=== PATIENT | male | born 1965 | race Caucasian/White ===

== ENCOUNTER 2023-10-29 14:10 | Inpatient (IN) | payer MEDICAID ==
[~2023-10-29] VITALS: Ht 165.1 cm; Wt 91.8 kg
[~2023-10-29 14:10] MED LIST: LISI-894 PO; OLAN10 PO
[2023-10-29] MEDS: HALOPERIDOL 5 MG TABLET PO ONE (15:27)
[2023-10-29] MEDS: BENZTROPINE MESYLATE 2 MG TABLET PO ONE (15:27)
[2023-10-29] MEDS: LORazepam 1 MG TABLET PO ONE (15:27)
[2023-10-29] MEDS: AmLODIPine BESYLATE 10 MG TABLET PO ONE (15:27)
[2023-10-29 15:32] LABS: BASOPHILS % (AUTO) 0.2 % (0.0-2.0); EOSINOPHILS % (AUTO) 0.2 % (1.0-6.0); HEMATOCRIT 47.6 % (41-53); HEMOGLOBIN 16.6 g/dL (13.5-17.5); LYMPHOCYTES # (AUTO) 1.1 K/uL (1.0-4.8); LYMPHOCYTES % (AUTO) 10.4 % (22.0-44.0); MEAN CORPUSCULAR HEMOGLOBIN 31.7 pg (26.0-34.0); MEAN CORPUSCULAR VOLUME 91 fL (80-100); MONOCYTES # (AUTO) 0.8 K/uL (0.1-1.0); MONOCYTES % (AUTO) 7.7 % (2.0-9.0); NEUTROPHILS # (AUTO) 8.2 K/uL (1.8-7.7); NEUTROPHILS % (AUTO) 81.5 % (40.0-70.0); PLATELET COUNT (AUTO) 192 K/uL (150-450); RED BLOOD CELL COUNT(AUTO) 5.24 MIL/uL (4.50-5.90); RED CELL DISTRIBUTION WIDTH 14.3 % (11.5-14.5); WHITE BLOOD COUNT (AUTO) 10.1 K/uL (4.5-11.0)
[2023-10-29 15:45] LABS: ANION GAP 14 mmol/L (8-16); CALCIUM, TOTAL 9.3 mg/dL (8.8-10.5); CARBON DIOXIDE 23 mmol/L (22-29); CHLORIDE 98 mmol/L (98-107); CREATININE 1.01 mg/dL (0.60-1.30); GLOMERULAR FILTR. RATE CALC > 60 mL/min (>60); GLUCOSE,RANDOM 133 mg/dL (70-110); POTASSIUM 4.2 mmol/L (3.5-5.1); SODIUM SERUM 135 mmol/L (136-145); UREA NITROGEN, BLOOD 13 mg/dL (7-18)
[2023-10-29 15:50] LABS: ALANINE AMINOTRANSFERASE 34 U/L (12-78); ALBUMIN 4.4 g/dL (3.4-5.0); ALKALINE PHOSPHATASE 83 U/L (46-116); ASPARTATE AMINOTRANSFERASE 22 U/L (15-37); BILIRUBIN,TOTAL 1.2 mg/dL (0.1-1.0); TOTAL PROTEIN, SERUM 9.1 g/dL (6.4-8.2)
[2023-10-29 16:02] LABS: ALCOHOL, BLOOD (SERUM) < 3 mg/dL (0-10)
[2023-10-29 17:21] LABS: COVID AG,FIA SOURCE NASAL SWAB
[2023-10-29 17:40] LABS: SARS-COV2 (COVID) ANTIGEN,FIA Negative (Negative)
[2023-10-29] MEDS ORDERED: PNEUMOCOCCAL VACCINE POLYVALENT 0.5 ML SYRINGE [PPSV23] IM. ONE (20:30)
[2023-10-29] MEDS ORDERED: INFLUENZA VIRUS VACCINE QVS 2023-24 (6MO+)/PF 60 MCG/0.5 ML SYRINGE IM. ONE (20:30)
[2023-10-29 21:25] LABS: GLUCOMETER DEV NAME(LOC) BV3N.; GLUCOSE,POINT OF CARE 154 MG/DL (70-110)
[2023-10-29 22:11] VITALS: BP 153/99; PULSE 101; RESP 19; TEMP 98.5; O2SAT 98
[2023-10-30 00:19] VITALS: BP 106/86; PULSE 94; RESP 19; TEMP 98.2; O2SAT 99
[2023-10-30] MEDS ORDERED: CloNIDine HCL 0.1 MG TABLET PO PRN (06:30)
[2023-10-30] MEDS ORDERED: MAG HYDROX/ALUMINUM HYD/SIMETH ES 30 ML SUSPENSION UDCUP PO PRN (06:30)
[2023-10-30] MEDS ORDERED: IBUPROFEN 400 MG TABLET PO PRN (06:30)
[2023-10-30] MEDS ORDERED: PETROLATUM,WHITE 28 GM JELLY TP PRN (06:30)
[2023-10-30] MEDS ORDERED: GuaiFENesin/D-METHORPHAN [SUGAR-FREE] 200-20MG/10 ML SYRUP UDCUP PO PRN (06:30)
[2023-10-30] MEDS ORDERED: ACETAMINOPHEN 325 MG TABLET PO PRN (06:30)
[2023-10-30] MEDS ORDERED: ALBUTEROL SULFATE HFA 90 MCG/PUFF 8 GM INHALER IH PRN (06:30)
[2023-10-30] MEDS ORDERED: LOPERAMIDE HCL 2 MG CAPSULE PO PRN (06:30)
[2023-10-30] MEDS ORDERED: NICOTINE 14 MG/24 HOUR PATCH TD PRN (06:30)
[2023-10-30] MEDS ORDERED: MAGNESIUM HYDROXIDE SUSPENSION 30 ML UDCUP PO PRN (06:30)
[2023-10-30] MEDS ORDERED: ONDANSETRON HCL 4 MG TABLET PO PRN (06:30)
[2023-10-30] MEDS ORDERED: GLUCAGON,HUMAN RECOMBINANT 1 MG VIAL IM PRN (07:15)
[2023-10-30] MEDS: AmLODIPine BESYLATE 10 MG TABLET PO SCH (08:12)
[2023-10-30 08:40] VITALS: BP 139/85; PULSE 104; RESP 18; TEMP 97.7; O2SAT 95
[2023-10-30 08:43] LABS: HEMOGLOBIN A1C 5.7 % (3.8-5.6)
[2023-10-30 08:55] LABS: FREE T4 (FREE THYROXINE) 1.37 ng/dL (0.76-1.46); T4 (THYROXINE) 10.4 mcg/dL (4.7-13.3); THYROID STIMULATING HORMONE 1.45 uIU/mL (0.36-3.74)
[2023-10-30 09:07] LABS: APPEARANCE,URINE HAZY (CLEAR); BILIRUBIN,URINE NEGATIVE (NEGATIVE); COLOR,URINE LIGHT YELLOW (YELLOW); GLUCOSE, URINE (UA) NEGATIVE (NEGATIVE); KETONES,URINE NEGATIVE (NEGATIVE); LEUKOCYTE ESTERASE ,URINE LARGE (NEGATIVE); NITRATE,URINE POSITIVE (NEGATIVE); OCCULT BLOOD,URINE NEGATIVE (NEGATIVE); PROTEIN,URINE NEGATIVE (NEGATIVE); SPECIFIC GRAVITIY, URINE 1.011 (1.003-1.030); UROBILINOGEN,URINE <=1.0 mg/dL (<=1.0)
[2023-10-30 09:11] LABS: BACTERIA,URINE Many /HPF (None Seen); RBC,URINE 0-2 /HPF (0-2); WBC,URINE 51-100 /HPF (0-5)
[2023-10-30 09:13] LABS: ALCOHOL, URINE DRUG SCREEN NEGATIVE (NEGATIVE); AMPHET/METH SCREEN,URINE POSITIVE (NEGATIVE); BARBITURATE SCREEN, URINE NEGATIVE (NEGATIVE); BENZODIAZEPINES SCREEN,URINE NEGATIVE (NEGATIVE); CANNABINOID SCREEN,URINE NEGATIVE (NEGATIVE); COCAINE SCREEN,URINE NEGATIVE (NEGATIVE); METHADONE SCREEN, URINE NEGATIVE (NEGATIVE); OPIATE SCREEN,URINE NEGATIVE (NEGATIVE); PHENCYCLIDINE SCREEN,URINE NEGATIVE (NEGATIVE)
[2023-10-30 11:14] VITALS: BP 139/95; PULSE 99; RESP 18; TEMP 97.7; O2SAT 96
[2023-10-30 11:51] LABS: GLUCOMETER DEV NAME(LOC) BV3N.; GLUCOSE,POINT OF CARE 197 MG/DL (70-110)
[2023-10-30] MEDS: INSULIN LISPRO 100 UNITS/ML SQ PRN (11:55)
[2023-10-30] MEDS: LORazepam 2 MG TABLET PO PRN (16:21)
[2023-10-30 16:51] LABS: GLUCOMETER DEV NAME(LOC) BV3N.; GLUCOSE,POINT OF CARE 86 MG/DL (70-110)
[2023-10-30] MEDS: OLANZapine 5 MG RAPDIS TABLET PO SCH (17:11)
[2023-10-30 20:11] LABS: GLUCOMETER DEV NAME(LOC) BV3N.; GLUCOSE,POINT OF CARE 146 MG/DL (70-110)
[2023-10-30] MEDS: ZOLPIDEM TARTRATE 10 MG TABLET PO PRN (20:36)
[2023-10-30 21:08] VITALS: BP 111/69; PULSE 92; RESP 16; TEMP 97.3; O2SAT 99
[2023-10-31 07:06] LABS: GLUCOMETER DEV NAME(LOC) BV3N.; GLUCOSE,POINT OF CARE 117 MG/DL (70-110)
[2023-10-31 08:53] LABS: HEMOGLOBIN A1C 5.7 % (3.8-5.6)
[2023-10-31 09:04] LABS: CHOL/HDL RATIO 2.2 (4.2-7.3); THYROID STIMULATING HORMONE 1.66 uIU/mL (0.36-3.74)
[2023-10-31 09:54] VITALS: BP 112/68; PULSE 98; RESP 20; TEMP 98.3; O2SAT 98
[2023-10-31] MEDS: CEPHALEXIN MONOHYDRATE 500 MG CAPSULE PO SCH (13:24)
[2023-10-31 15:21] LABS: GLUCOMETER DEV NAME(LOC) BV3N.; GLUCOSE,POINT OF CARE 84 MG/DL (70-110)
[2023-10-31 16:51] LABS: GLUCOMETER DEV NAME(LOC) BV3N.; GLUCOSE,POINT OF CARE 177 MG/DL (70-110)
[2023-10-31 20:49] VITALS: BP 107/77; PULSE 86; RESP 16; TEMP 97.8; O2SAT 99
[2023-10-31 22:11] LABS: GLUCOMETER DEV NAME(LOC) BV3N.; GLUCOSE,POINT OF CARE 108 MG/DL (70-110)
[2023-11-01 07:40] LABS: GLUCOMETER DEV NAME(LOC) BV3N.; GLUCOSE,POINT OF CARE 111 MG/DL (70-110)
[2023-11-01 08:25] VITALS: BP 148/78; PULSE 82; RESP 18; TEMP 98.3; O2SAT 100
[2023-11-01] MEDS: HALOPERIDOL 5 MG TABLET PO PRN (11:54)
[2023-11-01 17:30] LABS: GLUCOMETER DEV NAME(LOC) BV3N.; GLUCOSE,POINT OF CARE 145 MG/DL (70-110)
[2023-11-01 20:19] VITALS: BP 113/74; PULSE 86; RESP 20; TEMP 97.4; O2SAT 96
[2023-11-01 20:50] LABS: GLUCOMETER DEV NAME(LOC) BV3N.; GLUCOSE,POINT OF CARE 168 MG/DL (70-110)
[2023-11-02 06:21] LABS: GLUCOMETER DEV NAME(LOC) BV3N.; GLUCOSE,POINT OF CARE 111 MG/DL (70-110)
[2023-11-02 11:04] VITALS: BP 126/81; PULSE 86; RESP 18; TEMP 97.6; O2SAT 100
[2023-11-02 20:16] LABS: GLUCOMETER DEV NAME(LOC) BV3N.; GLUCOSE,POINT OF CARE 96 MG/DL (70-110)
[2023-11-02 20:16] LABS: GLUCOMETER DEV NAME(LOC) BV3N.; GLUCOSE,POINT OF CARE 161 MG/DL (70-110)
[2023-11-02 20:16] LABS: GLUCOMETER DEV NAME(LOC) BV3N.; GLUCOSE,POINT OF CARE 157 MG/DL (70-110)
[2023-11-02 21:49] VITALS: BP 136/95; PULSE 86; RESP 18; TEMP 98.1; O2SAT 98
[2023-11-03 06:16] LABS: GLUCOMETER DEV NAME(LOC) BV3N.; GLUCOSE,POINT OF CARE 94 MG/DL (70-110)
[2023-11-03 09:23] VITALS: BP 137/79; PULSE 87; RESP 18; TEMP 97.6; O2SAT 100
[2023-11-03 12:01] LABS: GLUCOMETER DEV NAME(LOC) BV3N.; GLUCOSE,POINT OF CARE 130 MG/DL (70-110)
[2023-11-03 16:55] LABS: GLUCOMETER DEV NAME(LOC) BV3N.; GLUCOSE,POINT OF CARE 124 MG/DL (70-110)
[2023-11-03] MEDS: OLANZapine 7.5 MG TABLET PO SCH (20:19)
[2023-11-03 21:05] VITALS: BP 119/81; PULSE 80; TEMP 97.5; O2SAT 97
[2023-11-03 22:50] LABS: GLUCOMETER DEV NAME(LOC) BV3N.; GLUCOSE,POINT OF CARE 111 MG/DL (70-110)
[2023-11-04 06:21] LABS: GLUCOMETER DEV NAME(LOC) BV3N.; GLUCOSE,POINT OF CARE 98 MG/DL (70-110)
[2023-11-04 08:45] VITALS: BP 114/69; PULSE 60; RESP 17; TEMP 97.6; O2SAT 98
[2023-11-04 11:55] LABS: GLUCOMETER DEV NAME(LOC) BV3N.; GLUCOSE,POINT OF CARE 124 MG/DL (70-110)
[2023-11-04 17:20] LABS: GLUCOMETER DEV NAME(LOC) BV3N.; GLUCOSE,POINT OF CARE 160 MG/DL (70-110)
[2023-11-04 20:15] VITALS: BP 149/82; PULSE 75; TEMP 97.6; O2SAT 98
[2023-11-04 23:16] LABS: GLUCOMETER DEV NAME(LOC) BV3N.; GLUCOSE,POINT OF CARE 141 MG/DL (70-110)
[2023-11-05 06:26] LABS: GLUCOMETER DEV NAME(LOC) BV3N.; GLUCOSE,POINT OF CARE 107 MG/DL (70-110)
[2023-11-05 08:30] VITALS: BP 118/67; PULSE 65; RESP 16; TEMP 98.3; O2SAT 99
[2023-11-05 11:45] LABS: GLUCOMETER DEV NAME(LOC) BV3N.; GLUCOSE,POINT OF CARE 123 MG/DL (70-110)
[2023-11-05 17:10] LABS: GLUCOMETER DEV NAME(LOC) BV3N.; GLUCOSE,POINT OF CARE 128 MG/DL (70-110)
[2023-11-05 20:17] VITALS: BP 122/72; PULSE 71; TEMP 97.5; O2SAT 100
[2023-11-05 20:31] LABS: GLUCOMETER DEV NAME(LOC) BV3N.; GLUCOSE,POINT OF CARE 131 MG/DL (70-110)
[2023-11-06 06:05] LABS: GLUCOMETER DEV NAME(LOC) BV3N.; GLUCOSE,POINT OF CARE 98 MG/DL (70-110)
[2023-11-06 08:18] VITALS: BP 138/74; PULSE 70; RESP 18; TEMP 97.9; O2SAT 100
[2023-11-06 11:25] LABS: GLUCOMETER DEV NAME(LOC) BV3N.; GLUCOSE,POINT OF CARE 200 MG/DL (70-110)
[2023-11-06 16:41] LABS: GLUCOMETER DEV NAME(LOC) BV3N.; GLUCOSE,POINT OF CARE 89 MG/DL (70-110)
[2023-11-06 20:20] VITALS: BP 109/87; PULSE 67; TEMP 97.2; O2SAT 99
[2023-11-06 20:26] LABS: GLUCOMETER DEV NAME(LOC) BV3N.; GLUCOSE,POINT OF CARE 169 MG/DL (70-110)
[2023-11-07 06:16] LABS: GLUCOMETER DEV NAME(LOC) BV3N.; GLUCOSE,POINT OF CARE 99 MG/DL (70-110)
[2023-11-07 09:03] VITALS: BP 118/76; PULSE 72; RESP 18; TEMP 97.7; O2SAT 100
[2023-11-07 11:55] LABS: GLUCOMETER DEV NAME(LOC) BV3N.; GLUCOSE,POINT OF CARE 94 MG/DL (70-110)
[2023-11-07 16:35] LABS: GLUCOMETER DEV NAME(LOC) BV3N.; GLUCOSE,POINT OF CARE 214 MG/DL (70-110)
[2023-11-07 20:01] LABS: GLUCOMETER DEV NAME(LOC) BV3N.; GLUCOSE,POINT OF CARE 122 MG/DL (70-110)
[2023-11-07 22:07] VITALS: BP 113/75; PULSE 89; RESP 18; TEMP 97.8; O2SAT 99
[2023-11-08 06:36] LABS: GLUCOMETER DEV NAME(LOC) BV3N.; GLUCOSE,POINT OF CARE 101 MG/DL (70-110)
[2023-11-08 08:24] VITALS: BP 118/62; PULSE 61; RESP 17; TEMP 97.5; O2SAT 100
[2023-11-08 16:36] LABS: GLUCOMETER DEV NAME(LOC) BV3N.; GLUCOSE,POINT OF CARE 102 MG/DL (70-110)
[2023-11-08 16:36] LABS: GLUCOMETER DEV NAME(LOC) BV3N.; GLUCOSE,POINT OF CARE 165 MG/DL (70-110)
[2023-11-08 20:16] VITALS: BP 129/80; PULSE 81; RESP 17; TEMP 98
[2023-11-08 20:21] LABS: GLUCOMETER DEV NAME(LOC) BV3N.; GLUCOSE,POINT OF CARE 141 MG/DL (70-110)
[2023-11-09 07:10] LABS: GLUCOMETER DEV NAME(LOC) BV3N.; GLUCOSE,POINT OF CARE 101 MG/DL (70-110)
[2023-11-09 08:05] VITALS: BP 122/60; PULSE 79; RESP 16; TEMP 98.2; O2SAT 100
[2023-11-09 16:40] LABS: GLUCOMETER DEV NAME(LOC) BV3N.; GLUCOSE,POINT OF CARE 169 MG/DL (70-110)
[2023-11-09 16:40] LABS: GLUCOMETER DEV NAME(LOC) BV3N.; GLUCOSE,POINT OF CARE 116 MG/DL (70-110)
[2023-11-09] MEDS: DOCUSATE SODIUM 100 MG CAPSULE PO PRN (17:15)
[2023-11-09 20:35] LABS: GLUCOMETER DEV NAME(LOC) BV3N.; GLUCOSE,POINT OF CARE 146 MG/DL (70-110)
[2023-11-09 21:43] VITALS: BP 130/63; PULSE 71; RESP 15; TEMP 97.8; O2SAT 99
[2023-11-10 06:31] LABS: GLUCOMETER DEV NAME(LOC) BV3N.; GLUCOSE,POINT OF CARE 93 MG/DL (70-110)
[2023-11-10 08:55] VITALS: BP 127/65; PULSE 66; RESP 18; TEMP 97.7; O2SAT 99
[2023-11-10 20:06] LABS: GLUCOMETER DEV NAME(LOC) BV3N.; GLUCOSE,POINT OF CARE 97 MG/DL (70-110)
[2023-11-10 20:06] LABS: GLUCOMETER DEV NAME(LOC) BV3N.; GLUCOSE,POINT OF CARE 137 MG/DL (70-110)
[2023-11-10 20:06] LABS: GLUCOMETER DEV NAME(LOC) BV3N.; GLUCOSE,POINT OF CARE 166 MG/DL (70-110)
[2023-11-10 21:03] VITALS: BP 138/75; PULSE 78; TEMP 98; O2SAT 99
[2023-11-11 06:50] LABS: GLUCOMETER DEV NAME(LOC) BV3N.; GLUCOSE,POINT OF CARE 116 MG/DL (70-110)
[2023-11-11 08:31] VITALS: BP 118/70; PULSE 63; RESP 17; TEMP 98; O2SAT 99
[2023-11-11 11:51] LABS: GLUCOMETER DEV NAME(LOC) BV3N.; GLUCOSE,POINT OF CARE 150 MG/DL (70-110)
[2023-11-11] MEDS ORDERED: OLAN7.5T22 PO (14:27)
[2023-11-11] MEDS ORDERED: AMLO-258 PO (15:35)
[2023-11-11 16:50] LABS: GLUCOMETER DEV NAME(LOC) BV3N.; GLUCOSE,POINT OF CARE 183 MG/DL (70-110)
== END 2023-11-11 19:19 | disposition home or self-care (01) | DRG 750 ==
LOC: EMS 14:10 → B3A 17:17
PROVIDERS: ADMIT Psychiatry & Neurology Child & Adolescent Psychiatry; ATTEND Psychiatry & Neurology Child & Adolescent Psychiatry
PROC: GZHZZZZ Group Psychotherapy (ICD-10-PCS; principal; 2023-11-01)
PROC: GZ51ZZZ Individual Psychotherapy, Behavioral (ICD-10-PCS; 2023-11-01)
DX: F20.0 Paranoid schizophrenia (principal); E11.9 Type 2 diabetes mellitus without complications; R45.851 Suicidal ideations; F15.10 Other stimulant abuse, uncomplicated; Z20.822 Contact with and (suspected) exposure to COVID-19; I10 Essential (primary) hypertension; N39.0 Urinary tract infection, site not specified; Z79.4 Long term (current) use of insulin; Z91.148 Patient's other noncompliance with medication regimen for other reason
CPT/HCPCS: 80053; 80061; 80307; 81001; 82962; 83036; 84436; 84439; 84443; 85025; 87086; 87186; 99285; G0480

== ENCOUNTER 2024-01-05 12:57 | Inpatient (IN) | payer MEDICAID, OTHER ==
[~2024-01-05] VITALS: Ht 167.6 cm; Wt 93.4 kg
[~2024-01-05 12:57] MED LIST changes: +AMLO-258 PO; -LISI-894 PO; -OLAN10 PO; +OLAN7.5T22 PO
[2024-01-05 13:26] LABS: GLUCOMETER DEV NAME(LOC) ERT.5; GLUCOSE,POINT OF CARE 197 MG/DL (70-110)
[2024-01-05 13:51] LABS: COVID AG,FIA SOURCE NASAL SWAB
[2024-01-05 14:04] LABS: ANION GAP 12 mmol/L (8-16); CALCIUM, TOTAL 9.2 mg/dL (8.8-10.5); CARBON DIOXIDE 24 mmol/L (22-29); CHLORIDE 95 mmol/L (98-107); CREATININE 0.99 mg/dL (0.60-1.30); GLOMERULAR FILTR. RATE CALC > 60 mL/min (>60); GLUCOSE,RANDOM 177 mg/dL (70-110); POTASSIUM 3.9 mmol/L (3.5-5.1); SODIUM SERUM 131 mmol/L (136-145); UREA NITROGEN, BLOOD 11 mg/dL (7-18)
[2024-01-05 14:07] LABS: BASOPHILS % (AUTO) 0.3 % (0.0-2.0); EOSINOPHILS % (AUTO) 0.5 % (1.0-6.0); HEMATOCRIT 46.4 % (41-53); HEMOGLOBIN 16.1 g/dL (13.5-17.5); LYMPHOCYTES # (AUTO) 1.3 K/uL (1.0-4.8); LYMPHOCYTES % (AUTO) 14.2 % (22.0-44.0); MEAN CORPUSCULAR HEMOGLOBIN 30.9 pg (26.0-34.0); MEAN CORPUSCULAR HGB CONC 34.7 G/dL (31.0-37.0); MEAN CORPUSCULAR VOLUME 89 fL (80-100); MONOCYTES # (AUTO) 0.8 K/uL (0.1-1.0); MONOCYTES % (AUTO) 9.2 % (2.0-9.0); NEUTROPHILS # (AUTO) 6.9 K/uL (1.8-7.7); NEUTROPHILS % (AUTO) 75.8 % (40.0-70.0); PLATELET COUNT (AUTO) 218 K/uL (150-450); RED BLOOD CELL COUNT(AUTO) 5.21 MIL/uL (4.50-5.90); RED CELL DISTRIBUTION WIDTH 13.6 % (11.5-14.5); WHITE BLOOD COUNT (AUTO) 9.1 K/uL (4.5-11.0)
[2024-01-05 14:09] LABS: ALANINE AMINOTRANSFERASE 47 U/L (12-78); ALBUMIN 4.6 g/dL (3.4-5.0); ALKALINE PHOSPHATASE 95 U/L (46-116); ASPARTATE AMINOTRANSFERASE 30 U/L (15-37); BILIRUBIN,TOTAL 1.1 mg/dL (0.1-1.0); TOTAL PROTEIN, SERUM 9.2 g/dL (6.4-8.2)
[2024-01-05 14:12] LABS: SARS-COV2 (COVID) ANTIGEN,FIA Negative (Negative)
[2024-01-05 14:22] LABS: ALCOHOL, BLOOD (SERUM) < 3 mg/dL (0-10)
[2024-01-05] MEDS: LORazepam 1 MG TABLET PO ONE (14:38)
[2024-01-05] MEDS: OLANZapine 5 MG TABLET PO ONE (14:38)
[2024-01-05] MEDS ORDERED: LORazepam 2 MG TABLET PO PRN (18:00)
[2024-01-06] MEDS: HALOPERIDOL 5 MG TABLET PO PRN (02:37)
[2024-01-06] MEDS: ZOLPIDEM TARTRATE 10 MG TABLET PO PRN (02:37)
[2024-01-06 02:44] VITALS: BP 128/76; PULSE 72; RESP 20; TEMP 98.6; O2SAT 96
[2024-01-06] MEDS ORDERED: GLUCAGON,HUMAN RECOMBINANT 1 MG VIAL IM PRN (03:30)
[2024-01-06] MEDS ORDERED: PNEUMOCOCCAL VACCINE POLYVALENT 0.5 ML SYRINGE [PPSV23] IM. ONE (04:15)
[2024-01-06 06:30] LABS: GLUCOMETER DEV NAME(LOC) BV2S.; GLUCOSE,POINT OF CARE 202 MG/DL (70-110)
[2024-01-06] MEDS: INSULIN LISPRO 100 UNITS/ML SQ PRN (06:43)
[2024-01-06 08:54] VITALS: BP 121/59; PULSE 86; RESP 17; TEMP 96.4; O2SAT 97
[2024-01-06] MEDS: AmLODIPine BESYLATE 10 MG TABLET PO SCH (09:13)
[2024-01-06 09:36] LABS: ALANINE AMINOTRANSFERASE 58 U/L (12-78); ALBUMIN 3.7 g/dL (3.4-5.0); ALKALINE PHOSPHATASE 93 U/L (46-116); ANION GAP 12 mmol/L (8-16); ASPARTATE AMINOTRANSFERASE 43 U/L (15-37); BILIRUBIN,TOTAL 0.7 mg/dL (0.1-1.0); CALCIUM, TOTAL 9.1 mg/dL (8.8-10.5); CARBON DIOXIDE 22 mmol/L (22-29); CHLORIDE 102 mmol/L (98-107); GLOMERULAR FILTR. RATE CALC > 60 mL/min (>60); GLUCOSE,RANDOM 138 mg/dL (70-110); POTASSIUM 3.8 mmol/L (3.5-5.1); SODIUM SERUM 136 mmol/L (136-145); TOTAL PROTEIN, SERUM 7.9 g/dL (6.4-8.2); UREA NITROGEN, BLOOD 18 mg/dL (7-18)
[2024-01-06 11:55] LABS: GLUCOMETER DEV NAME(LOC) BV2S.; GLUCOSE,POINT OF CARE 157 MG/DL (70-110)
[2024-01-06] MEDS ORDERED: ACETAMINOPHEN 325 MG TABLET PO PRN (14:30)
[2024-01-06] MEDS ORDERED: GuaiFENesin/D-METHORPHAN [SUGAR-FREE] 200-20MG/10 ML SYRUP UDCUP PO PRN (14:30)
[2024-01-06] MEDS ORDERED: ALBUTEROL SULFATE HFA 90 MCG/PUFF 8 GM INHALER IH PRN (14:30)
[2024-01-06] MEDS ORDERED: IBUPROFEN 400 MG TABLET PO PRN (14:30)
[2024-01-06] MEDS ORDERED: NICOTINE 14 MG/24 HOUR PATCH TD PRN (14:30)
[2024-01-06] MEDS ORDERED: PETROLATUM,WHITE 28 GM JELLY TP PRN (14:30)
[2024-01-06] MEDS ORDERED: DOCUSATE SODIUM 100 MG CAPSULE PO PRN (14:30)
[2024-01-06] MEDS ORDERED: ONDANSETRON HCL 4 MG TABLET PO PRN (14:30)
[2024-01-06] MEDS ORDERED: LOPERAMIDE HCL 2 MG CAPSULE PO PRN (14:30)
[2024-01-06] MEDS ORDERED: MAG HYDROX/ALUMINUM HYD/SIMETH ES 30 ML SUSPENSION UDCUP PO PRN (14:30)
[2024-01-06] MEDS ORDERED: CloNIDine HCL 0.1 MG TABLET PO PRN (14:30)
[2024-01-06 16:24] LABS: HEMOGLOBIN A1C 6.8 % (3.8-5.6)
[2024-01-06 16:46] LABS: GLUCOMETER DEV NAME(LOC) BV2S.; GLUCOSE,POINT OF CARE 133 MG/DL (70-110)
[2024-01-06] MEDS: MAGNESIUM HYDROXIDE SUSPENSION 30 ML UDCUP PO PRN (20:28)
[2024-01-06] MEDS: OLANZapine 7.5 MG TABLET PO SCH (20:28)
[2024-01-06 20:46] LABS: GLUCOMETER DEV NAME(LOC) BV2S.; GLUCOSE,POINT OF CARE 175 MG/DL (70-110)
[2024-01-06 21:32] VITALS: BP 111/66; PULSE 75; RESP 17; TEMP 97.8; O2SAT 98
[2024-01-07 06:15] LABS: GLUCOMETER DEV NAME(LOC) BV2S.; GLUCOSE,POINT OF CARE 159 MG/DL (70-110)
[2024-01-07 08:37] LABS: CHOL/HDL RATIO 2.5 (4.2-7.3)
[2024-01-07 08:38] LABS: APPEARANCE,URINE HAZY (CLEAR); BILIRUBIN,URINE NEGATIVE (NEGATIVE); COLOR,URINE YELLOW (YELLOW); GLUCOSE, URINE (UA) NEGATIVE (NEGATIVE); KETONES,URINE TRACE mg/dL (NEGATIVE); LEUKOCYTE ESTERASE ,URINE LARGE (NEGATIVE); NITRATE,URINE POSITIVE (NEGATIVE); OCCULT BLOOD,URINE TRACE (NEGATIVE); PROTEIN,URINE TRACE mg/dL (NEGATIVE); SPECIFIC GRAVITIY, URINE 1.025 (1.003-1.030)
[2024-01-07 08:41] LABS: HEMOGLOBIN A1C 6.9 % (3.8-5.6)
[2024-01-07 08:44] LABS: ALCOHOL, URINE DRUG SCREEN NEGATIVE (NEGATIVE); AMPHET/METH SCREEN,URINE POSITIVE (NEGATIVE); BARBITURATE SCREEN, URINE NEGATIVE (NEGATIVE); BENZODIAZEPINES SCREEN,URINE NEGATIVE (NEGATIVE); CANNABINOID SCREEN,URINE NEGATIVE (NEGATIVE); COCAINE SCREEN,URINE NEGATIVE (NEGATIVE); METHADONE SCREEN, URINE NEGATIVE (NEGATIVE); OPIATE SCREEN,URINE NEGATIVE (NEGATIVE); PHENCYCLIDINE SCREEN,URINE NEGATIVE (NEGATIVE)
[2024-01-07 08:45] VITALS: BP 126/63; PULSE 81; RESP 17; TEMP 98.2; O2SAT 100
[2024-01-07 09:03] LABS: RBC,URINE 0-2 /HPF (0-2)
[2024-01-07 09:04] LABS: BACTERIA,URINE Many /HPF (None Seen); WBC,URINE >100 /HPF (0-5)
[2024-01-07 09:11] LABS: THYROID STIMULATING HORMONE 0.79 uIU/mL (0.36-3.74)
[2024-01-07 15:50] LABS: GLUCOMETER DEV NAME(LOC) BV2S.; GLUCOSE,POINT OF CARE 163 MG/DL (70-110)
[2024-01-07] MEDS: CEPHALEXIN MONOHYDRATE 500 MG CAPSULE PO SCH (16:12)
[2024-01-07] MEDS: MUPIROCIN CALCIUM 2% 22 GM OINTMENT NASAL SCH (16:13)
[2024-01-07 16:51] LABS: GLUCOMETER DEV NAME(LOC) BV2S.; GLUCOSE,POINT OF CARE 179 MG/DL (70-110)
[2024-01-07] MEDS: ETHYL ALCOHOL 62% ANTISEPTIC NASAL SANITIZER 0.6 ML AMPUL NASAL SCH (20:26)
[2024-01-07 20:38] VITALS: BP 136/71; PULSE 69; RESP 20; TEMP 97.6; O2SAT 99
[2024-01-08 05:00] LABS: GLUCOMETER DEV NAME(LOC) BV2S.; GLUCOSE,POINT OF CARE 168 MG/DL (70-110)
[2024-01-08 06:26] LABS: GLUCOMETER DEV NAME(LOC) BV2S.; GLUCOSE,POINT OF CARE 134 MG/DL (70-110)
[2024-01-08 08:28] VITALS: BP 121/74; PULSE 76; RESP 16; TEMP 97.8; O2SAT 96
[2024-01-08 11:50] LABS: GLUCOMETER DEV NAME(LOC) BV2S.; GLUCOSE,POINT OF CARE 198 MG/DL (70-110)
[2024-01-08 18:25] LABS: GLUCOMETER DEV NAME(LOC) BV2S.; GLUCOSE,POINT OF CARE 243 MG/DL (70-110)
[2024-01-08 21:20] VITALS: BP 129/60; PULSE 72; RESP 18; TEMP 98.1; O2SAT 98
[2024-01-08 23:41] LABS: GLUCOMETER DEV NAME(LOC) BV2S.; GLUCOSE,POINT OF CARE 153 MG/DL (70-110)
[2024-01-09 06:50] LABS: GLUCOMETER DEV NAME(LOC) BV2S.; GLUCOSE,POINT OF CARE 136 MG/DL (70-110)
[2024-01-09 08:23] VITALS: BP 122/62; PULSE 66; RESP 16; TEMP 97.1; O2SAT 98
[2024-01-09 12:00] LABS: GLUCOMETER DEV NAME(LOC) BV2S.; GLUCOSE,POINT OF CARE 189 MG/DL (70-110)
[2024-01-09] MEDS ORDERED: OLAN7.5T22 PO (14:32)
[2024-01-09] MEDS ORDERED: CEPH-558 PO (14:42)
== END 2024-01-09 17:55 | disposition home or self-care (01) | DRG 750 ==
LOC: EMS 12:57 → B2S 01-06 00:11
PROVIDERS: ADMIT Psychiatry & Neurology Psychiatry; ATTEND Psychiatry & Neurology Psychiatry
PROC: GZHZZZZ Group Psychotherapy (ICD-10-PCS; principal; 2024-01-06)
PROC: GZ52ZZZ Individual Psychotherapy, Cognitive (ICD-10-PCS; 2024-01-06)
DX: F20.0 Paranoid schizophrenia (principal); R45.851 Suicidal ideations; S00.83XA Contusion of other part of head, initial encounter; E11.65 Type 2 diabetes mellitus with hyperglycemia; F12.10 Cannabis abuse, uncomplicated; Z20.822 Contact with and (suspected) exposure to COVID-19; F41.9 Anxiety disorder, unspecified; Y04.0XXA Assault by unarmed brawl or fight, initial encounter; I10 Essential (primary) hypertension; Y93.89 Activity, other specified; Y92.89 Other specified places as the place of occurrence of the external cause; Y99.8 Other external cause status
CPT/HCPCS: 80053; 80061; 80307; 81001; 82962; 83036; 84443; 85025; 87081; 87086; 87186; 99285; G0480